=== PATIENT | male | born 1980 | race American Indian/Alaskan Native ===

== ENCOUNTER 2019-05-16 11:00 | Outpatient (CLI) | payer SELFPAY | END 2019-05-16 11:01 | disposition EMS.NT | LOC: EMS 11:00 | PROVIDERS: ATTEND Surgery | DX: F41.9 Anxiety disorder, unspecified (principal); R00.2 Palpitations ==

== ENCOUNTER 2023-06-14 17:16 | Emergency (ER) | payer MEDICAID ==
[2023-06-14 17:27] VITALS: BP 124/74; O2SAT 97
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
[2023-06-14 19:47] LABS: BILIRUBIN,URINE NEGATIVE (NEGATIVE); GLUCOSE, URINE (UA) NEGATIVE (NEGATIVE); KETONES,URINE (UA) NEGATIVE (NEGATIVE); LEUKOCYTE ESTERASE, URINE NEGATIVE (NEGATIVE); NITRITE,URINE NEGATIVE (NEGATIVE); OCCULT BLOOD,URINE NEGATIVE (NEGATIVE); PROTEIN,URINE NEGATIVE (NEGATIVE); UROBILINOGEN,URINE 0.2 (NORMAL) E.U./dL (NORMAL)
[2023-06-14 19:48] LABS: CLARITY,URINE CLEAR (CLEAR)
== END 2023-06-14 20:40 | disposition home or self-care (01) ==
LOC: ED 17:16
DX: Z13.9 Encounter for screening, unspecified (principal); G82.20 Paraplegia, unspecified
CPT/HCPCS: 81001; 81003; 87086; 99282; 99283

== ENCOUNTER 2023-06-20 15:01 | Outpatient (CLI) | payer MEDICAID ==
--- NOTE | 2023-06-20 18:31 | Ultrasound Report ---
PROCEDURE: Retroperitoneal INDICATIONS: NEUROGENIC BLADDER TECHNIQUE: Real-time scanning was performed of the retroperitoneal organs, with image documentation. COMPARISON: None. FINDINGS: Kidneys: Kidneys are normal in size. Right kidney measures 10.7 cm long; left kidney measures 11.1 cm long. Right renal cortical thickness is 0.7 cm; left renal cortical thickness is 0.8 cm. No tobisa d masses, hydronephrosis, or nephrolithiasis. Bladder: Pre-void bladder volume is 339 mL. The patient self catheterizes to void. Post-void residu al is 1 mL. Pre-void images demonstrate no intraluminal masses or stones. On pre-void images, both ureteral jets are noted with color Doppler interrogation. (Of note, ureteral jets may not be detecta ble in up to 25% of cases due to insufficient differences in specific gravity between ureteral and bl adder urine). Miscellaneous: No free abdominal fluid. Apparent prostate calculi can be seen. An echogenic liver is incidentally noted, which is attributed to fatty infiltration. IMPRESSION: Normal appearing kidneys, without hydronephrosis. No significant postvoid residual, following self catheterization. Additional findings: Fatty liver infiltration Reviewed by: Taqueria Nova MD on 06/20/2023 5:30 PM RIKKI Approved by: Taqueria Nova MD on 06/20/2023 5:30 PM RIKKI Station ID: [id number]
== END 2023-06-20 15:02 | disposition home or self-care (01) ==
LOC: DI 15:01
PROVIDERS: ATTEND Internal Medicine
DX: N31.9 Neuromuscular dysfunction of bladder, unspecified (principal); S32.012A Unstable burst fracture of first lumbar vertebra, initial encounter for closed fracture; G81.90 Hemiplegia, unspecified affecting unspecified side

== ENCOUNTER 2023-09-01 07:00 | Outpatient (CLI) | payer MEDICAID | END 2023-09-01 23:59 | disposition home or self-care (01) | LOC: LAB.S 07:00 | PROVIDERS: ATTEND Internal Medicine | DX: R30.0 Dysuria (principal) | CPT/HCPCS: 87077; 87086; 87181 ==

== ENCOUNTER 2023-12-16 17:56 | Emergency (ER) | payer MEDICAID, OTHER ==
[2023-12-16 18:48] VITALS: BP 125/74; O2SAT 97
[2023-12-16 19:16] LABS: BILIRUBIN,URINE NEGATIVE (NEGATIVE); GLUCOSE, URINE (UA) NEGATIVE (NEGATIVE); KETONES,URINE (UA) NEGATIVE (NEGATIVE); LEUKOCYTE ESTERASE, URINE LARGE (NEGATIVE); NITRITE,URINE POSITIVE (NEGATIVE); OCCULT BLOOD,URINE MODERATE (NEGATIVE); PROTEIN,URINE NEGATIVE (NEGATIVE); UROBILINOGEN,URINE 0.2 (NORMAL) E.U./dL (NORMAL)
[2023-12-16 19:17] LABS: CLARITY,URINE CLOUDY (CLEAR)
[2023-12-16 19:24] LABS: BACTERIA,URINE Many /HPF (None Seen); SQUAMOUS EPITHELIAL CELL,UR FEW Squamous (<= Few); WBC,URINE >25 /HPF (0-3)
--- NOTE | 2023-12-16 21:27 | ED Physician Documentation ---
PD HPI MALE - Stated complaint Stated Complaint: - Chief complaint Chief Complaint: UTI - Additional information Additional information: 42-year-old male presents emergency department for cloudy urine and UTI symptoms since yesterday. Patient has a spinal cord injury and he self caths daily. He said that he has had a history of urinary tract infections in the past and this feels very similar to that. He is unsure if he had any fevers or chills but he overall feels generalized malaise and unwell. No CVA tenderness. PD PAST MEDICAL HISTORY - Past Medical History Past Medical History: Yes Cardiovascular: None Respiratory: None Neuro: None Endocrine/Autoimmune: None GI: None : None HEENT: None Psych: None Musculoskeletal: None Derm: None Other Past Medical History: spinal cord injury- t9? - Past Surgical History Past Surgical History: Yes - Present Medications Home Medications: Ambulatory Orders Medication Instructions Recorded Confirmed Cefuroxime Axetil [Cefuroxime] 500 mg PO BID 10 Days #20 tablet 12/16/23 - Allergies Allergies/Adverse Reactions: Allergies Allergy/AdvReac Type Severity Reaction Status Date / Time No Known Drug Allergies Allergy Verified 12/16/23 18:46 - Social History Does the pt smoke?: No Smoking Status: Never smoker Does the pt drink ETOH?: No Does the pt have substance abuse?: No - Immunizations Immunizations are current?: Yes - POLST Patient has POLST: No PD ED PE NORMAL - Vitals Vital signs reviewed: Yes - General General: Alert and oriented X 3, No acute distress, Well developed/nourished - HEENT HEENT: Atraumatic - Neck Neck: Supple, no meningeal sign - Respiratory Respiratory: No respiratory distress - Abdomen Abdomen: Normal bowel sounds (42-year-old male presents emergency department for cloudy urine and UTI symptoms since yesterday. Patient has a spinal cord injury and he self caths daily. He said that he has had a history of urinary tract infections in the past and this feels very similar to that. He is unsure if he had any fev), Soft, No organomegaly - Male Male : Deferred - Derm Derm: Normal color, Warm and dry, No rash - Psych Psych: Normal mood, Normal affect Results - Vitals Vitals: Vital Signs - 24 hr 12/16/23 12/16/23 18:39 18:46 Temperature 36.5 C 36.5 C Heart Rate 80 80 Respiratory 17 17 Rate Blood Pressure 125/74 125/74 O2 Saturation 97 97 Oxygen O2 Source Room air - Labs Labs: Laboratory Tests 12/16/23 18:55 Urine Color YELLOW Urine Clarity CLOUDY Urine pH 6.0 Ur Specific [place] 1.015 Urine Protein NEGATIVE Urine Glucose (UA) NEGATIVE Urine Ketones NEGATIVE Urine Occult Blood MODERATE H Urine Nitrite POSITIVE H Urine Bilirubin NEGATIVE Urine Urobilinogen 0.2 (NORMAL) Ur Leukocyte Esterase LARGE H Urine RBC 6-10 H Urine WBC >25 H Ur Squamous Epith Cells FEW Squamous Urine Bacteria Many H Ur Microscopic Review INDICATED Urine Culture Comments INDICATED PD Medical Decision Making - ED course ED course: Suprapubic tenderness urinalysis reveals moderate amount of blood with positive leukocytes and nitrates and WBCs. Patient was given a one-time dose of Rocephin here in the emergency department he was originally started on doxycycline but I changed her mind to cefuroxime and sent this prescription to his preferred pharmacy. Patient was informed that after couple days we will call him if any antibiotics need to be changed pending his urine cultures and he was given strict return precautions. All questions answered safe for discharge. Departure - Departure Disposition: Home, Self Care Clinical Impression: UTI (urinary tract infection) Qualifiers: Urinary tract infection type: acute cystitis Hematuria presence: with hematuria Qualified Code(s): N30.01 - Acute cystitis with hematuria Instructions: ED UTI Cystitis Male Prescriptions: Cefuroxime Axetil [Cefuroxime] 500 mg PO BID 10 Days #20 tablet Comments: Thank you for trusting us with your care. We will culture your urine, the results should be done in 48-72 hours. If an antibiotic change is necessary we will call you. Return if worse in the meantime, especially if you develop increasing flank pain, fevers, or cannot keep down the medication. In the meantime we have given you a one-time dose of IM Rocephin and started you on doxycycline. You can take Tylenol ibuprofen for any pain and discomfort. I have sent a prescription of Cefuroxime to [facility] in [place] make sure you pick this up first thing tomorrow morning you will take this twice a day for total of 10 days or until you run out. Please come back to the emergency department if you have gone 48 hours without any missed doses of antibiotics and starting develop any fevers or chills or any worsening persistent testicular pain. Discharge Date/Time: 12/16/23 22:20
[2023-12-16] MEDS: cefTRIAXone 500 MG VIAL IM STA (21:53)
[2023-12-16] MEDS: DOXYCYCLINE 100 MG TABLET PO STA (21:53)
[2023-12-16] MEDS: KETOROLAC 30 MG/ML VIAL IM STA (21:54)
[2023-12-16] MEDS: LIDOCAINE 1% 2 ML VIAL MC ONE (21:54)
[2023-12-17] LABS: CHLAMYDIA TRACHOMATIS DNA NEGATIVE (NEGATIVE); NEISSERIA GONORRHOEAE DNA NEGATIVE (NEGATIVE); TRICHOMONAS VAGINALIS DNA NEGATIVE (NEGATIVE)
== END 2023-12-16 22:20 | disposition home or self-care (01) ==
LOC: ED 17:56
DX: N30.01 Acute cystitis with hematuria (principal); Z87.440 Personal history of urinary (tract) infections
CPT/HCPCS: 81001; 87086; 87181; 87491; 87591; 87661; 96372; 99283; 99284; A9270; 81003

== ENCOUNTER 2024-03-30 07:00 | Outpatient (CLI) | payer MEDICAID | END 2024-03-30 23:59 | disposition home or self-care (01) | LOC: LAB.S 07:00 | PROVIDERS: ATTEND Internal Medicine | DX: N31.9 Neuromuscular dysfunction of bladder, unspecified (principal); Z87.440 Personal history of urinary (tract) infections | CPT/HCPCS: 87077; 87086; 87181 ==